=== PATIENT | male | born 1960 | race Caucasian/White ===

== ENCOUNTER 2016-09-05 20:48 | Emergency (ER) | payer SELFPAY ==
[~2016-09-05] VITALS: Ht 185.4 cm; Wt 83.0 kg
[2016-09-05 21:01] VITALS: BP 125/89; PULSE 97; RESP 18; TEMP 99; O2SAT 96
[2016-09-05] MEDS ORDERED: TETANUS/DIPHTHERIA TOXOID ADULT 0.5 ML VIAL IM ONE (21:15)
[2016-09-05] MEDS ORDERED: LIDOCAINE HCL 2% 20 ML VIAL INFIL ONE (21:15)
[2016-09-05] MEDS ORDERED: ACETAMINOPHEN 325 MG TAB PO ONE (21:15)
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
[2016-09-05] MEDS ORDERED: IBUP800T23 PO (22:31)
[2016-09-05] MEDS ORDERED: AUGM875T PO (22:31)
[2016-09-05] MEDS ORDERED: AMOXICILLIN/CLAVULANATE K 875 MG TAB PO ONE (22:45)
== END 2016-09-06 06:58 | disposition home or self-care (01) ==
LOC: NEPB 20:48
DX: S02.82XA Fracture of other specified skull and facial bones, left side, initial encounter for closed fracture (principal); S02.40FA Zygomatic fracture, left side, initial encounter for closed fracture; S01.112A Laceration without foreign body of left eyelid and periocular area, initial encounter; S01.81XA Laceration without foreign body of other part of head, initial encounter; S00.83XA Contusion of other part of head, initial encounter; R51 Headache; F17.210 Nicotine dependence, cigarettes, uncomplicated; Z23 Encounter for immunization; Y04.2XXA Assault by strike against or bumped into by another person, initial encounter
CPT/HCPCS: 12011; 70450; 70486; 72125; 90471; 90714